=== PATIENT | female | born 2000 | race Caucasian/White ===

== ENCOUNTER 2021-10-07 15:43 | Emergency (ER) | payer OTHER, BC ==
[2021-10-07] MEDS ORDERED: Boostrix 0.5 ML (Tdap) VIAL ONE (16:34)
== END 2021-10-07 17:07 | disposition home or self-care (01) ==
LOC: ERS 15:43
DX: S71.111A Laceration without foreign body, right thigh, initial encounter (principal); S71.011A Laceration without foreign body, right hip, initial encounter; S40.812A Abrasion of left upper arm, initial encounter; S80.811A Abrasion, right lower leg, initial encounter; Z23 Encounter for immunization; V43.62XA Car passenger injured in collision with other type car in traffic accident, initial encounter
CPT/HCPCS: 12001; 90471; 90715